=== PATIENT | male | born 1965 | race Caucasian/White ===

== ENCOUNTER → 2022-09-06 08:39 | Outpatient (CLI) | payer OTHER, SELFPAY ==
[2022-09-06 11:20] LABS: Add Manual Diff / Slide Review NO; Basophils Absolute Auto 0 /uL (0-100); Basophils Percent Auto 0.5 % (0-2); Eosinophils Absolute Auto 200 /uL (0-450); Hematocrit 45.4 % (41-53); Hemoglobin 15.5 g/dL (13.5-17.5); Lymphocytes Absolute Auto 1500 /uL (1100-4500); Lymphocytes Percent Auto 23.1 % (25-40); Mean Corpuscular HGB Conc 34.1 % (30-36); Mean Corpuscular Hemoglobin 30.3 PG (26-34); Mean Corpuscular Volume 88.9 fL (80-100); Monocytes Absolute Auto 600 /uL (0-900); Monocytes Percent Auto 8.7 % (3-14); Neutrophils Absolute Auto 4200 /uL (1500-7000); Neutrophils Percent Auto 64.7 % (50-75); Platelet Count 273 X10^3/uL (150-400); Red Blood Cell Count 5.11 X10^6/uL (4.5-5.9); Red Cell Distribution Width 13.4 % (11.6-14.8); White Blood Cell Count 6.5 X10^3/uL (4.5-11.0)
[2022-09-06 11:36] LABS: Hemoglobin A1C% w Est Avg Glu 6.9 % (4.0-6.0)
[2022-09-06 11:49] LABS: Alanine Aminotransferase 63 IU/L (<50); Albumin 4.1 g/dL (3.5-5.0); Albumin Globulin Ratio 1.4 (1.0-2.8); Alkaline Phosphatase 98 U/L (38-126); Aspartate Aminotransferase 46 IU/L (17-59); BUN Creatinine Ratio 13.8 (6-22); Bilirubin Total 1.1 mg/dL (0.2-1.3); Blood Urea Nitrogen 12 mg/dL (9-20); Calcium 8.9 mg/dL (8.4-10.2); Carbon Dioxide 25 mmol/L (22-32); Chloride 99 mmol/L (98-107); Cholesterol 232 mg/dL (140-199); Estimated Glomerular Filt Rate > 60 mL/min (>60); Glucose 164 mg/dL (70-100); HDL Cholesterol 53 mg/dL (40-60); HEMOLYSIS < 15 (0-50); LDL Cholesterol Calculated 156 mg/dL (<100); Sodium 133 mmol/L (137-145); Total Protein 7.1 g/dL (6.3-8.2); Triglycerides 114 mg/dL (35-150)
[2022-09-06 12:06] LABS: Vitamin D 25 Hydroxy (D3) 39.3 ng/mL (30.0-100.0)
== END ==
PROVIDERS: PCP Family Medicine; Referring Provider Family Medicine; Visit Provider Family Medicine
DX: E55.9 Vitamin D deficiency, unspecified (principal); E66.01 Morbid (severe) obesity due to excess calories; I10 Essential (primary) hypertension
CPT/HCPCS: 36415; 80053; 80061; 82306; 83036; 85025

== ENCOUNTER → 2022-11-07 12:54 | Outpatient (CLI) | payer OTHER, SELFPAY ==
--- NOTE | 2022-11-19 13:36 | DIET.CONS ---
Pt seen on 11/07/22 Dietary Consultation Note Assessment: 57y M attending RD visit for help with diet to support HLD (TC 232, LDL 156), HTN (154/94) and DM2 (A1c 6.9). Pt recently started metformin 1,000mg bid- no GI discomfort started last week of September, full dose for the past week FB-130 since initiation of Metformin therapy. has DM2 but with hyperglycemia-pt reports it is poorly managed with complications so is eager to learn more to support the two of them. 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 preferred high PRO snacks- hb egg, cheese sticks, pepperoni sticks, apple or fruit gave up drinking doing October, planning to continue this Pt wants something fast to grab for [facility] Ht: 6ft Wt: 351# BMI: 47.6 UBW: as low as 220# with significant kcal deficit and excessive exercise. Nutrition Diagnosis: altered nutrition related laboratory values (TC, LDL, BP, BG, BMI) r/t undesirable food choices and physical inactivity aeb BMI 47, BP 154/94, A1c 6.9, LDL 156, pt reports working long days from home sedentary and often skips meals. Interventions: 1. To support dx of DM2, educated on Carb Consistent diet using handouts including appropriate carb levels to support DM2 and weight management. Discussed preferential use of less processed higher fiber and higher protein choices- beans/legumes/WG. Practiced label reading for carb levels and portion sizes. 2. To support HTN, educated pt on sodium content of foods and limiting intake to no more than 600mg per meal. Practiced label reading and meal planning. 3. To support HLD, educated pt on HLD MNT with focus on high fiber diet. Reviewed high fiber foods, label reading and meal planning around these ingredients. EER: 45-60 CHO per meal max Monitoring/Evaluations: f/u prn with DM educator if A1c >7 or needs further instruction. Pt to start GLP-1 med with PCP at next visit to assist with BG regulation and weight management. Electronically Signed by: Bree High 11/07/22 16:36 Clinical Dietitian [address] [id number]
== END ==
PROVIDERS: PCP Family Medicine; Referring Provider Family Medicine; Visit Provider Family Medicine
DX: E78.5 Hyperlipidemia, unspecified (principal); E11.9 Type 2 diabetes mellitus without complications; I10 Essential (primary) hypertension; Z71.3 Dietary counseling and surveillance; Z79.84 Long term (current) use of oral hypoglycemic drugs; Z68.42 Body mass index [BMI] 45.0-49.9, adult
CPT/HCPCS: 97802